=== PATIENT | female | born 1960 | race Two or more races ===

== ENCOUNTER 2023-05-13 07:07 | Emergency (ER) | payer OTHER ==
[~2023-05-13] VITALS: Ht 165.1 cm; Wt 95.3 kg
[2023-05-13 07:43] VITALS: BP 179/66; PULSE 20; TEMP 98
[2023-05-13] MEDS: methylPREDNISolone SOD SUCC 125 MG/2 ML VL IM ONE (08:05)
[2023-05-13] MEDS: ALBUTEROL SULF 2.5 MG/0.5ML(0.5%) NEB SOLN NEB ONE (08:22)
[2023-05-13] MEDS: IPRATROPIUM BROM 0.5 MG/2.5ML INH SOL NEB ONE (08:22)
[2023-05-13 08:24] VITALS: RESP 16; O2SAT 95
[2023-05-13] MEDS ORDERED: AZIT500T66 PO (08:47)
[2023-05-13] MEDS ORDERED: PROM1SOL4 PO (08:47)
[2023-05-13] MEDS ORDERED: PRED20TA2 PO (08:47)
== END 2023-05-13 08:51 | disposition home or self-care (01) ==
LOC: ER 07:07
DX: J45.909 Unspecified asthma, uncomplicated (principal)
CPT/HCPCS: 71045; 94640; 96372; 99284; J2930; J7644

== ENCOUNTER 2023-07-02 16:53 | Inpatient (IN) | payer MEDICARE, OTHER ==
[~2023-07-02] VITALS: Ht 167.6 cm; Wt 95.0 kg
[2023-07-02] MEDS: hydrALAZINE HCL 20 MG/ML VL IV ONE ×3 (00:11→19:03)
[~2023-07-02 16:53] MED LIST: AZIT500T66 PO; PRED20TA2 PO; PROM1SOL4 PO
[2023-07-02 17:00] VITALS: PULSE 73; RESP 14; O2SAT 96
[2023-07-02 17:34] LABS: Basophils # (auto) 0.1 10 ^3/uL (0-0.2); Basophils % (auto) 0.7 % (0.0-2.0); Eosinophils # (auto) 0.6 10 ^3/uL (0-0.8); Eosinophils % (auto) 7.3 % (0.0-7.0); Hematocrit 43.6 % (36.0-46.0); Hemoglobin 14.5 g/dL (12.2-16.2); Lymphocytes # (auto) 2.6 10 ^3/uL (0.4-5.4); Lymphocytes % (auto) 32.5 % (10.0-50.0); Mean Corpuscular Hemoglobin 29.4 pg (28.0-32.0); Mean Corpuscular Hgb Conc. 33.3 g/dL (32.0-36.0); Mean Corpuscular Volume 88.3 fL (80.0-100.0); Monocytes # (auto) 0.5 10 ^3/uL (0-1.3); Monocytes % (auto) 5.8 % (0.0-12.0); Neutrophils # (auto) 4.3 10 ^3/uL (1.6-8.6); Neutrophils % (auto) 53.7 % (37.0-80.0); Nucleated Red Blood Cells % 0.1 %; Red Blood Cells 4.94 10^6/uL (4.0-5.20); White Blood Cell 7.9 10^3/uL (4.4-10.8)
[2023-07-02] MEDS: IOHEXOL 350 MG/ML 100ML IJ ONE (17:47)
[2023-07-02 17:50] LABS: Alanine Aminotransferase 23 U/L (7-40); Alkaline Phosphatase 140 U/L (46-116); Anion Gap 10 (5-15); Aspartate Aminotransferase 16 U/L (13-40); BUN/Creatinine Ratio 20.7 (10.0-20.0); Blood Urea Nitrogen 19 mg/dL (9-23); Calcium 9.9 mg/dL (8.7-10.4); Carbon Dioxide 22 mmol/L (20-30); Chloride 108 mmol/L (98-107); Glucose 123 mg/dL (74-106); Magnesium 2.2 mg/dL (1.6-2.6); Sodium 140 mmol/L (136-145)
[2023-07-02 17:51] LABS: Albumin 4.4 g/dL (3.2-4.8); Bilirubin, Total 0.5 mg/dL (0.2-1.0); Total Protein 7.1 g/dL (5.7-8.2)
[2023-07-02 17:52] LABS: INR 0.99 (0.9-1.15); Partial Thromboplastin Time 29.1 SEC (24.5-34.5); Prothrombin Time 10.5 sec (9.3-11.8)
[2023-07-02] MEDS: ASPirin 325 MG TAB PO ONE (19:02)
[2023-07-02 19:30] VITALS: PULSE 100; RESP 14; O2SAT 98
[2023-07-02] MEDS: ATORVASTATIN 20 MG TAB PO SCH ×2 (22:00→22:20)
[2023-07-02] MEDS: NIFEdipine ER 30 MG TAB PO ONE (22:19)
[2023-07-02] MEDS: LISINOPRIL 5 MG TAB PO ONE (22:20)
[2023-07-02 22:30] LABS: Triglycerides 229 mg/dL (< 150)
[2023-07-02 22:31] LABS: LDL Cholesterol 161 mg/dL (< 100)
[2023-07-02 22:32] LABS: Cholesterol 247 mg/dL (< 200); HDL Cholesterol 45 mg/dL (40-59)
[2023-07-03] VITALS (8 sets, daily range): BP systolic 122–171; BP diastolic 64–67; PULSE 87–97; RESP 14–21; TEMP 98–98.5; O2SAT 94–98
[2023-07-03 06:00] LABS: Basophils # (auto) 0.1 10 ^3/uL (0-0.2); Basophils % (auto) 0.7 % (0.0-2.0); Eosinophils # (auto) 0.4 10 ^3/uL (0-0.8); Eosinophils % (auto) 4.7 % (0.0-7.0); Hematocrit 41.3 % (36.0-46.0); Hemoglobin 13.8 g/dL (12.2-16.2); Lymphocytes # (auto) 2.7 10 ^3/uL (0.4-5.4); Lymphocytes % (auto) 29.8 % (10.0-50.0); Mean Corpuscular Hemoglobin 29.5 pg (28.0-32.0); Mean Corpuscular Hgb Conc. 33.6 g/dL (32.0-36.0); Mean Corpuscular Volume 87.8 fL (80.0-100.0); Monocytes # (auto) 0.8 10 ^3/uL (0-1.3); Monocytes % (auto) 8.7 % (0.0-12.0); Neutrophils # (auto) 5.2 10 ^3/uL (1.6-8.6); Neutrophils % (auto) 56.1 % (37.0-80.0); Nucleated Red Blood Cells % 0.1 %; White Blood Cell 9.2 10^3/uL (4.4-10.8)
[2023-07-03 06:08] LABS: Chloride 107 mmol/L (98-107); Potassium 3.6 mmol/L (3.5-5.1); Sodium 138 mmol/L (136-145)
[2023-07-03 06:09] LABS: Anion Gap 10 (5-15); Calcium 9.5 mg/dL (8.5-10.1); Carbon Dioxide 21 mmol/L (20-30)
[2023-07-03 06:14] LABS: BUN/Creatinine Ratio 13.2 (10.0-20.0); Blood Urea Nitrogen 12 mg/dL (9-23); Glucose 98 mg/dL (74-106)
[2023-07-03 09:38] LABS: Amphetamine Screen, Urine Neg (NEGATIVE); Barbiturate Scree,Urine Neg (NEGATIVE); Benzodiazephine Screen, Urine Neg (NEGATIVE); Cannabinoid Screen, Urine Neg (NEGATIVE); Cocaine Screen, Urine Neg (NEGATIVE); Opiate Scree,Urine Neg (NEGATIVE); Phencyclidine Screen, Urine Neg (NEGATIVE)
[2023-07-03 09:50] LABS: Urine Bacteria FEW /hpf (None Seen); Urine Blood 1+ /uL (Negative); Urine Budding Yeast OCCASIONAL /hpf (None Seen); Urine Clarity Turbid (Clear); Urine Color Light-Yellow (Yellow); Urine Mucus FEW (None Seen); Urine Protein, UAD TRACE (Negative); Urine Specific Gravity 1.032 (1.001-1.035); Urine Urobilinogen Normal (Negative); Urine WBC 190 /hpf (0 - 5); Urine WBC Clumps PRESENT /hpf (None Seen); Urine pH 5.5 (5.0-9.0)
[2023-07-03] MEDS: ENOXAPARIN SOD 40 MG/0.4 ML SYRINGE SC SCH (10:00)
[2023-07-03] MEDS: LISINOPRIL 5 MG TAB PO SCH (10:26)
[2023-07-03] MEDS: ASPirin 81 mg TAB PO SCH (10:26)
[2023-07-03] MEDS: NIFEdipine ER 30 MG TAB PO SCH (10:26)
[2023-07-03 11:18] LABS: Phosphorus 3.3 mg/dL (2.4-5.1)
[2023-07-03] MEDS: cefTRIAXone 1GM/50ML D5W 50 ML IV ONE (11:29)
[2023-07-03 12:37] LABS: Magnesium 2.3 mg/dL (1.6-2.6)
[2023-07-03] MEDS: ERGOCALCIFEROL 50,000 UNIT(1.25MG) CAP PO SCH (14:57)
[2023-07-03] MEDS ORDERED: MONT-8 PO (22:45)
[2023-07-04] VITALS (8 sets, daily range): BP systolic 117–138; BP diastolic 54–66; PULSE 74–90; RESP 16–20; TEMP 36.8; O2SAT 93–100
[2023-07-04 06:28] LABS: Basophils # (auto) 0.1 10 ^3/uL (0-0.2); Basophils % (auto) 0.7 % (0.0-2.0); Eosinophils # (auto) 0.5 10 ^3/uL (0-0.8); Eosinophils % (auto) 6.2 % (0.0-7.0); Hematocrit 39.4 % (36.0-46.0); Hemoglobin 13.1 g/dL (12.2-16.2); Lymphocytes % (auto) 26.4 % (10.0-50.0); Mean Corpuscular Hemoglobin 29.2 pg (28.0-32.0); Mean Corpuscular Hgb Conc. 33.4 g/dL (32.0-36.0); Mean Corpuscular Volume 87.3 fL (80.0-100.0); Monocytes # (auto) 0.6 10 ^3/uL (0-1.3); Monocytes % (auto) 8.2 % (0.0-12.0); Neutrophils # (auto) 4.5 10 ^3/uL (1.6-8.6); Neutrophils % (auto) 58.5 % (37.0-80.0); Nucleated Red Blood Cells % 0.3 %; Red Blood Cells 4.51 10^6/uL (4.0-5.20); White Blood Cell 7.7 10^3/uL (4.4-10.8)
[2023-07-04 06:46] LABS: Alanine Aminotransferase 19 U/L (7-40); Albumin 4.1 g/dL (3.2-4.8); Alkaline Phosphatase 129 U/L (46-116); Anion Gap 8 (5-15); Aspartate Aminotransferase 19 U/L (13-40); BUN/Creatinine Ratio 14.3 (10.0-20.0); Blood Urea Nitrogen 14 mg/dL (9-23); Calcium 9.5 mg/dL (8.7-10.4); Carbon Dioxide 21 mmol/L (20-30); Chloride 109 mmol/L (98-107); Glucose 132 mg/dL (74-106); Potassium 4.1 mmol/L (3.5-5.1); Sodium 138 mmol/L (136-145)
[2023-07-04 06:47] LABS: Bilirubin, Total 0.7 mg/dL (0.2-1.0); Total Protein 6.9 g/dL (5.7-8.2)
[2023-07-04] MEDS ORDERED: CEPH250C PO (08:25)
[2023-07-04] MEDS ORDERED: ATOR20TA50 PO (08:25)
[2023-07-04] MEDS ORDERED: ERGO1CAP23 PO (08:25)
[2023-07-04] MEDS ORDERED: LISI-275 PO (08:25)
[2023-07-04] MEDS ORDERED: ASPI-325 PO (08:25)
[2023-07-04] MEDS: cefTRIAXone 1GM/50ML D5W 50 ML IV SCH (09:41)
[2023-07-04] MEDS: ALBUTEROL SULF 2.5 MG/0.5ML(0.5%) NEB SOLN NEB PRN (11:45)
== END 2023-07-04 13:25 | disposition home or self-care (01) | DRG 690 ==
LOC: ER 16:53 → TELE 21:37 → TELE-WESTW 07-03 21:45
PROVIDERS: ADMIT Internal Medicine; ATTEND Internal Medicine
DX: N30.00 Acute cystitis without hematuria (principal); I16.0 Hypertensive urgency; H81.10 Benign paroxysmal vertigo, unspecified ear; I10 Essential (primary) hypertension; J45.909 Unspecified asthma, uncomplicated; R26.9 Unspecified abnormalities of gait and mobility; E66.9 Obesity, unspecified; F17.200 Nicotine dependence, unspecified, uncomplicated; E55.9 Vitamin D deficiency, unspecified; R73.03 Prediabetes; Z68.33 Body mass index [BMI] 33.0-33.9, adult; Z79.899 Other long term (current) drug therapy; Z83.3 Family history of diabetes mellitus; Z82.49 Family history of ischemic heart disease and other diseases of the circulatory system; Z82.3 Family history of stroke
CPT/HCPCS: 36415; 70450; 70496; 70551; 71045; 80048; 80053; 80061; 80307; 80320; 81001; 82306; 82607; 82962; 83036; 83735; 83880; 84100; 84443; 84484; 85025; 85610; 85730; 87086; 87088; 87186; 93005; 93306; 94640; 99291; G0378